=== PATIENT | female | born 1950 | race Hispanic/Latino ===

== ENCOUNTER 2018-04-17 12:10 | Emergency (ER) | payer MEDICARE, OTHER ==
[2018-04-17 12:32] LABS: Bilirubin Negative (Negative); Blood, Urine Small (Negative); Clarity Hazy (Clear); Glucose, Urine (Dipstick) Negative (Negative); Leukocyte Moderate (Negative); Nitrite Negative (Negative); Protein, Urine (Dipstick) 30 mg/dL (Neg-Trace); Specific Gravity, Urine 1.025 (1.005-1.030); Urobilinogen 0.2 mg/dL (0.2-1.0)
[2018-04-17 12:35] LABS: WBC/HPF 21-50 HPF (0-3)
[2018-04-17 12:36] LABS: Bacteria/HPF 3+ HPF (None Seen)
== END 2018-04-17 12:57 | disposition home or self-care (01) ==
LOC: SCSER 12:10
DX: N39.0 Urinary tract infection, site not specified (principal); E78.5 Hyperlipidemia, unspecified; I10 Essential (primary) hypertension; I25.10 Atherosclerotic heart disease of native coronary artery without angina pectoris; H40.9 Unspecified glaucoma; Z79.82 Long term (current) use of aspirin; Z79.899 Other long term (current) drug therapy
CPT/HCPCS: 81003; 81015; 87077; 87086; 87186; 99283

== ENCOUNTER 2019-10-24 08:15 | Emergency (ER) | payer MEDICARE, OTHER ==
--- NOTE | 2019-10-24 09:31 | CT ---
CT Brain WO Con: 10/24/2019 8:44 AM CLINICAL HISTORY: Mechanical fall. IMAGING TECHNIQUE: Multiple CT images were obtained of the brain without IV contrast. COMPARISON: April 07, 2007 CT the brain FINDINGS: Brain: No acute infarct, hemorrhage or hydrocephalus is present. There is stable mild chronic small vessel white matter ischemic change. Ventricles: Normal. No hydrocephalus.. Skull: Intact.. Visualized Paranasal sinuses: Clear.. Mastoid air cells:Clear. Extracranial soft tissues:Normal. IMPRESSION: No acute intracranial abnormality.
--- NOTE | 2019-10-24 09:32 | CT ---
CT Cervical Spine WO Con Indication: Mechanical fall with possible neck injury COMPARISON: None. FINDINGS: Fracture: None. Spinal alignment: There is slight retrolisthesis of C5 on C6 which is likely degenerative. Craniocervical junction: Within normal limits. Vertebral body heights: Maintained. Cervical spine degenerative change: There is mild multilevel spondylosis Lung apices: Clear. IMPRESSION: No acute osseous abnormality.
--- NOTE | 2019-10-24 09:36 | CT ---
EXAM: CT facial bones PROVIDED CLINICAL HISTORY: Mechanical fall with facial trauma COMPARISON: None FINDINGS: Bones: Nasal bones: There is a mildly depressed left nasal bone fracture with rightward deviation of the lef t nasal bone. There is a comminuted, impacted fracture involving the right nasal bone with rightward deviation. Osseous nasal septum is intact. There is a small leftward projecting septal spur Maxilla: Intact. Mandible: Intact. Zygomatic arches: Intact. Pterygoid plates: Intact. Orbital rims: Intact. Orbital wall and floor: Intact. Frontal skull: Intact. Paranasal sinuses: Intact. Orbits: Intact. Visualized intracranial contents: Intact. Cervical spine: Intact. Soft tissues: There is a contusion overlying the left aspect of the nasal bridge. IMPRESSION: Bilateral nasal bone fractures.
--- NOTE | 2019-10-24 09:43 | RAD ---
EXAM: XR Lumbar Spine 2 Or 3 View DATE: 10/24/2019 8:44 AM INDICATION: Mechanical fall at work with low back pain COMPARISON: Prior exam dated September 12, 2018 FINDING: Postsurgical change of a posterolateral fusion of L4-S1 appears stable. Advanced disc degen erative disease at L3-4 with grade 1 anterolisthesis is stable. Advanced disc degenerative disease at L2-3 is stable. Mild disc degenerative disease at L1-2 is stable. Moderate disc degenerative disea se at L5-S1 is stable. Vascular calcifications of abdominal aorta are stable. No acute fracture or subluxation is demonstrated. IMPRESSION:No acute osseous abnormality. Stable severe spondylosis of the lumbar spine.
--- NOTE | 2019-10-24 09:44 | RAD ---
XR Shoulder Rt 3 View STANDARD: 10/24/2019 8:44 AM CLINICAL INDICATION: Mechanical fall with right shoulder pain. COMPARISON: None. FINDINGS: Bones: No acute fracture. Glenohumeral joint: Normal alignment. 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 Visualized lung: Clear. Soft tissues: Within normal limits. IMPRESSION: No acute osseous abnormality.
[2019-10-24] MEDS ORDERED: Adacel (T-DAP) 0.5 ML SYRINGE ONE (09:50)
== END 2019-10-24 10:24 | disposition home or self-care (01) ==
LOC: SCSER 08:15
DX: S02.2XXA Fracture of nasal bones, initial encounter for closed fracture (principal); M54.5 Low back pain; M25.511 Pain in right shoulder; I10 Essential (primary) hypertension; Z79.899 Other long term (current) drug therapy; W18.30XA Fall on same level, unspecified, initial encounter
CPT/HCPCS: 70450; 70486; 72100; 72125; 90471; 90715; L0120